=== PATIENT | female | born 1940 | race Caucasian/White ===

== ENCOUNTER → 2024-02-11 | Day surgery (SDC) | payer MEDICARE ==
[2024-02-04 11:30] LABS: BASOPHILS # (AUTO) 0.1 (0.0-0.1); EOSINOPHILS # (AUTO) 0.2 (0.0-0.4); EOSINOPHILS % 3.3 % (0.0-6.0); HEMATOCRIT 39.5 % (34.2-44.1); HEMOGLOBIN 12.3 g/dL (12.0-16.0); LYMPHOCYTES # (AUTO) 1.2 (1.0-3.2); LYMPHOCYTES % 21.2 % (18.0-39.1); MEAN CORPUSCULAR HEMOGLOBIN 31.5 pg (28-32); MEAN CORPUSCULAR HGB CONC 31.1 g/dL (31-35); MONOCYTES # (AUTO) 0.6 (0.2-0.8); MONOCYTES % 10.7 % (4.4-11.3); NEUTROPHILS # (AUTO) 3.7 (2.1-6.9); NEUTROPHILS % 63.5 % (38.7-80.0); PLATELET COUNT 229 x10e3/uL (140-360); RED BLOOD COUNT 3.91 x10e6/uL (3.6-5.1); RED CELL DISTRIBUTION WIDTH 13.6 % (11.7-14.4); WHITE BLOOD COUNT 5.81 x10e3/uL (4.8-10.8)
[~2024-02-11] MED LIST: AMIODARONE HCL100 MG PO; ELIQUIS5 MG PO; FUROSEMIDE40 MG PO; GABAPENTIN400 MG PO; IOPAMIDOL 610MG/1ML 300 MG/ML VIAL IV ONE; IPRATROPIU0.2 MG/1 M; ROCURONIUM BROMIDE 1 ML IV ONE; ROSUVASTATIN CAL5 MG PO; TRAZODONE HCL50 MG PO; VITAMIN C500 MG PO
[2024-02-11] MEDS: SODIUM CHLORIDE 0.9% 1000ML 1,000 ML ONE (09:03)
[2024-02-11] MEDS: FENTANYL CITRATE/PF 100MCG/2 ML INJ ONE (12:43)
[2024-02-11] MEDS: ACETAMINOPHEN/CODEINE 300MG - 30MG TAB ONE (13:25)
[2024-02-11 13:40] VITALS: TEMP 98.2
[2024-02-11 14:05] VITALS: BP 165/82; PULSE 61; RESP 18; O2SAT 94
== END | disposition home or self-care (01) ==
LOC: OR 08:09
PROVIDERS: ATTEND Urology
DX: C67.9 Malignant neoplasm of bladder, unspecified (principal); R35.0 Frequency of micturition; R35.1 Nocturia; E78.5 Hyperlipidemia, unspecified; I49.9 Cardiac arrhythmia, unspecified; Z88.1 Allergy status to other antibiotic agents; Z01.812 Encounter for preprocedural laboratory examination; Z01.818 Encounter for other preprocedural examination; Z79.899 Other long term (current) drug therapy; Z79.02 Long term (current) use of antithrombotics/antiplatelets; Z87.891 Personal history of nicotine dependence
CPT/HCPCS: 36415; 52235; 71046; 74420; 85025; 88305; 88342; C1758 ×2; J0690; J3010; J7030; Q9967; 88307